=== PATIENT | male | born 2000 | race Caucasian/White ===

== ENCOUNTER 2025-01-06 12:45 | Emergency (ER) | payer MEDICAID ==
[~2025-01-06] VITALS: Ht 167.6 cm; Wt 55.2 kg
[~2025-01-06 12:45] MED LIST: ARIP2TAB3 PO; DEXT5TAB26 PO
[2025-01-06 12:51] VITALS: BP 115/62; PULSE 82; RESP 18; TEMP 97.6; O2SAT 100
[2025-01-06] MEDS ORDERED: CEPH-585 PO (14:40)
[2025-01-06] MEDS: TETanus/Pertussis (Acell)/Diphther VAC/PF (Tdap-Adult) 0.5ml syringe IMVAC ONE (15:25)
== END 2025-01-06 15:29 | disposition home or self-care (01) ==
LOC: ER 12:46
DX: S91.331A Puncture wound without foreign body, right foot, initial encounter (principal); S83.92XA Sprain of unspecified site of left knee, initial encounter; W45.0XXA Nail entering through skin, initial encounter; Y93.01 Activity, walking, marching and hiking; Y92.89 Other specified places as the place of occurrence of the external cause; Y99.8 Other external cause status
CPT/HCPCS: 73564; 73630; 90471; 90715; 99284